=== PATIENT | female | born 1995 | race Caucasian/White ===

== ENCOUNTER 2017-03-27 06:21 | Emergency (ER) | payer OTHER ==
[~2017-03-27] VITALS: Ht 170.2 cm; Wt 63.5 kg
[2017-03-27 06:24] VITALS: BP 128/63
[2017-03-27] MEDS ORDERED: CELE50CA PO (06:26)
[2017-03-27] MEDS ORDERED: LEXA1TAB PO (06:27)
[2017-03-27] MEDS ORDERED: TRAZ50TA4 PO (06:27)
[2017-03-27] MEDS ORDERED: ULTR50TA PO (07:11)
== END 2017-03-27 07:23 | disposition home or self-care (01) ==
LOC: M ED 06:52
DX: G56.01 Carpal tunnel syndrome, right upper limb (principal); K58.9 Irritable bowel syndrome, unspecified; Z79.899 Other long term (current) drug therapy

== ENCOUNTER → 2017-04-24 | Outpatient (CLI) | payer OTHER ==
[~2017-04-24] MED LIST: CELE50CA PO; CONRAY-43 43% 50ML VIAL (Q9960) As Ordered ONE; LEXA1TAB PO; LIDOCAINE 1% MDV 20ML VIAL As Ordered ONE; TRAZ50TA4 PO; TRIAMCINOLONE ACETONIDE SUSP 40 MG/ML VIAL (J3301) As Ordered ONE; ULTR50TA PO
--- NOTE | 2017-04-24 12:37 | REP ---
RIGHT HIP INJECTION: The procedure was performed under the direct supervision of Dr. Mueller. The benefits and risks including but not limited to pain, infection, bleeding and anaphylaxis were explained to the patient and informed consent was obtained. The right femoral neck was localized using fluoroscopic guidance. The skin was prepped and draped in a sterile fashion. 1% lidocaine was used as a local anesthetic. Using fluoroscopic guidance a 22-gauge spinal needle was inserted and advanced to the femoral neck. 0.5 mL of Conray 43 was injected to verify placement. 10 mL of a solution containing 9 mm of 1% lidocaine and 1 mL of Kenalog 40 mg was injected. The needle was then removed. The patient tolerated the procedure well and there were no immediate complications. 1 second of fluoroscopy time was utilized for this procedure. Reviewed by JUAN May 04/24/2017 03:17 PEdited and Signed by Gonzalo Mueller MD 04/24/2017 04:32 P
== END ==
LOC: M RADPRO 09:56
PROVIDERS: ATTEND Orthopaedic Surgery
DX: M25.551 Pain in right hip (principal)
CPT/HCPCS: 20610; 77002; J3301; Q9960